=== PATIENT | female | born 1960 | race Caucasian/White ===

== ENCOUNTER → 2019-10-11 | Outpatient (CLI) | payer OTHER ==
[~2019-10-11] MED LIST: DICL1GEL3 TOP; TRET0.0212 TOP; VALA500T5 PO; hormone cream
[2019-11-11 12:03] LABS: BASO # 0.1 10^3/uL (0.0-0.2); BASO % 0.6 % (0.0-1.0); EOS # 0.1 10^3/uL (0.0-0.5); HEMATOCRIT 43.3 % (36.0-47.0); HEMOGLOBIN 13.7 g/dl (12.0-15.5); LYMPH # 1.8 10^3/uL (1.5-5.0); LYMPH % 17.2 % (24.0-44.0); MEAN CORPUSCULAR HEMOGLOBIN 30.4 pg (27.0-33.0); MEAN CORPUSCULAR HGB CONC 31.6 g/dl (32.0-36.5); MONO # 0.7 10^3/uL (0.0-0.8); MONO % 6.7 % (0.0-5.0); NEUTROPHILS # 7.6 10^3/uL (1.5-8.5); NEUTROPHILS % 74.2 % (36.0-66.0); PLATELET COUNT, AUTOMATED 211 10^3/uL (150-450); RED BLOOD COUNT 4.51 10^6/uL (4.00-5.40); WHITE BLOOD COUNT 10.2 10^3/uL (4.0-10.0)
--- NOTE | 2019-11-17 13:22 | ECGEPIP ---
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
[2019-11-25 11:19] LABS: CALCIUM LEVEL 8.5 MG/DL (8.8-10.2); CREATININE FOR GFR 1.02 MG/DL (0.55-1.30); GLOMERULAR FILTRATION RATE 58.7 (>45)
== END ==
LOC: M LAB 17:05
PROVIDERS: ATTEND Podiatrist
DX: M20.32 Hallux varus (acquired), left foot (principal); M79.672 Pain in left foot; M20.42 Other hammer toe(s) (acquired), left foot

== ENCOUNTER 2019-10-20 06:55 | Day surgery (SDC) | payer OTHER ==
[~2019-10-20] VITALS: Ht 165.1 cm; Wt 94.8 kg
[2019-10-20] MEDS ORDERED: dexameTHASONE 4 MG/ML 1ML VIAL (J1100 PER 1MG) As Ordered ONE ×2 (08:12→08:28)
[2019-10-20] MEDS ORDERED: LIDOCAINE 2% 100MG/5ML SDV (FOR ANES.) As Ordered ONE (08:12)
[2019-10-20] MEDS ORDERED: ONDANSETRON 4MG/2ML VIAL As Ordered ONE (08:12)
[2019-10-20] MEDS ORDERED: fentaNYL 100 MCG/2 ML INJECTION (J3010) As Ordered ONE (08:13)
[2019-10-20] MEDS ORDERED: propofoL 500 MG/50 ML VIAL As Ordered ONE (08:13)
[2019-10-20] MEDS ORDERED: MIDAZOLAM INJ 2MG/2ML VIAL (J2250 PER 1MG) As Ordered ONE (08:13)
[2019-10-20] MEDS ORDERED: BUPIVACAINE HCL 0.5% 30 ML VIAL As Ordered ONE (08:26)
[2019-10-20] MEDS ORDERED: LIDOCAINE 2% MDV 20ML VIAL As Ordered ONE (08:26)
[2019-10-20] MEDS ORDERED: BACITRACIN PWD 50,000 UNITS VIAL As Ordered ONE (08:27)
[2019-10-20] MEDS ORDERED: NEOSPORIN GU IRRIG 20 ML VIAL As Ordered ONE (08:27)
[2019-10-20] MEDS ORDERED: ceFAZolin 2 GM/D5W 50 ML IV BAG (J0690 PER 500MG) As Ordered ONE (08:45)
[2019-10-20] MEDS ORDERED: ceFAZolin SOD 2 GM in IV 1 EA IV ONE (09:00)
[2019-10-20] MEDS ORDERED: LR 1,000 ML IV SCH (11:00)
[2019-10-20] MEDS ORDERED: fentaNYL 100 MCG/2 ML INJECTION (J3010) IV PRN (11:00)
[2019-10-20] MEDS ORDERED: METOCLOPRAMIDE INJ 10MG/2ML VIAL (J2765 PER 1) IV PRN (11:00)
[2019-10-20] MEDS ORDERED: ONDANSETRON 4MG/2ML VIAL IV PRN (11:00)
[2019-10-20] MEDS ORDERED: PERCOCET 5MG/325MG TAB PO PRN (11:00)
[2019-10-20 11:10] VITALS: BP 119/57
--- NOTE | 2019-11-10 14:07 | RO ---
DATE OF OPERATION: 10/20/2019 PREOPERATIVE DIAGNOSES: 1. Hallux valgus metatarsus primus varus deformity, left foot. 2. Long 2nd metatarsal, left foot. 3. Hammertoe deformity, 2nd toe, left foot. POSTOPERATIVE DIAGNOSES: 1. Hallux valgus metatarsus primus varus deformity, left foot. 2. Long 2nd metatarsal, left foot. 3. Hammertoe deformity, 2nd toe, left foot. SURGEON: David Epperson DPM FIELD PLACEMENT DIRECTOR: None. HARDWARE UTILIZED: An Arthrex 3.0 x 18 mm headless compression screw, an Arthrex headed 2.4 x 12 mm compression screw, and a 0.045 external wire PROCEDURES: 1. Westley bunionectomy and internal screw fixation, left foot. 2. Shortening 2nd metatarsal osteotomy, internal screw fixation, left foot. 3. Proximal to phalangeal joint fusion with external wire fixation, 0.045 times one, left foot. HEMOSTASIS: Ankle pneumatic tourniquet at 200 mm of mercury of 64 minutes. IRRIGATION: Dilute bacitracin, neomycin, and polymyxin B solution. DESCRIPTION OF OPERATION: On 10/20/2019, this 59-year-old white female was taken from her hospital room to the operating room and placed on the operating table in supine position. Following the induction of intravenous (IV) sedation and local and regional anesthesia, left lower extremity was prepped and draped in the usual aseptic manner. The following procedure was then performed. WESTLEY BUNIONECTOMY, INTERNAL SCREW FIXATION, 3.0 MM X 18 MM TIMES ONE, LEFT FOOT: Attention was directed to the patient's left foot, where a 5 cm incision was placed over the 1st metatarsophalangeal joint. The incision was deepened through subcutaneous tissues, and all coursing venous tributaries were identified, underscored, clamped, cut, ligated, and electrocoagulated as necessary. Incision was deepened in the same plane, and a linear capsulotomy was performed in the same plane as the original skin incision. The capsule and periosteal structures were then dissected free in one continuos layer, dorsally, medially, and laterally, thus creating a capsular periosteal-type envelope. This then brought into the view the hypertrophied medial eminence of the 1st metatarsal, which was osteotomized from distal to proximal through and through, exiting medial to the sesamoidal groove. Attention was then directed into the 1st metatarsal space, where dissection was carried down to the level of the fibular sesamoid, where the conjoined tendon was released. Attention was directed to the medial surface of the 1st metatarsal, where a V-shaped osteotomy was performed of the long plantar and short dorsal wing. Upon creation of this osteotomy, the capital fragment was transposed approximately 40% of the width of the shaft of the 1st me tarsal and fixated with a 3.0 x 18 mm headless compression screw. The osteotomy was noted to be stable in all three cardinal planes. The redundant cortical spike was then osteotomized from dorsal to plantar through and through. Medial surface was rasped to a smooth contour. The wound was flushed with copious amounts of dilute bacitracin, neomycin, and polymyxin B solution. Capsular structures were coapted and maintained utilizing 2-0 Monocryl in a simple interrupted-type fashion. Subcutaneous tissues were coapted and maintained utilizing 4-0 Monocryl in simple interrupted-type fashion. The skin incisions were coapted and maintained utilizing 6-0 Monocryl in continuous subcuticular-type fashion. This was additionally reinforced with Steri-Strips. Attention was then directed to the patient's 2nd toe, where the following procedure was performed. PROXIMAL INTERPHALANGEAL JOINT ARTHROPLASTY WITH EXTERNAL WIRE FIXATION, 0.045 TIMES ONE, 2ND TOE, LEFT FOOT: Attention was directed to the patient's 2nd toe, where a 2 cm incision was placed over the proximal interphalangeal joint. The incision was deepened through subcutaneous tissue, and all coursing venous tributaries were identified, underscored, clamped, cut, ligated, and electrocoagulated as necessary. Linear tenotomy and capsulotomy were performed at the proximal interphalangeal joint. Medial and lateral collateral ligaments were sharply dissected free from the head of the proximal phalanx. Utilizing a power saw, an osteotomy was performed at the level of the anatomic neck of the proximal phalanx from dorsal to plantar through and through. This was extirpated from the wound. Utilizing a power saw, the cartilage was then removed from the base of the middle phalanx. The following procedure was then performed. SHORTENING 2ND METATARSAL OSTEOTOMY WITH INTERNAL SCREW FIXATION: Attention was directed to the patient's 2nd metatarsal area, where a 3 cm incision was placed over the neck of the 2nd metatarsal. The incision was deepened through subcutaneous tissues, and all coursing venous tributaries were identified, underscored, clamped, cut, ligated, and electrocoagulated as necessary. Dissection was then carried down to the combined extensor tendons. They were freed from the surgical site where the 2nd toe arthroplasty was performed. It was then taken and fed through the more proximal incision, and they were released from the extensor expansion an mattson. A transverse tenotomy and capsulotomy was performed at the level of the 2nd metatarsophalangeal joint, and the plantar plate was released. Capsular incision was placed over the neck of the shaft of the 2nd metatarsal, and a Lana osteotomy was performed paralleling the plantar surface of the foot, starting at the articular cartilage of the 2nd metatarsal head. The toe was then placed in its corrected position, and the bone was pushed approximately 5-6 mm proximal, ensuring that the 2nd toe was longer than the 3rd. When a suitable reduction was seen, the osteotomy was fixated with a 2.4 x 12 mm screw. The osteotomy was noted to be stable in all three cardinal planes, and utilizing a rongeur the dorsal shelf of bone was removed and filed with a hand-held rasp. The wound was flushed with copious amounts of dilute bacitracin, neomycin, and polymyxin B solution. Utilizing a C- arm a wire was driven through the middle and distal phalanx and retrograded into the proximal phalanx, fixing the 2nd toe. The extensor tendons were then delivered back into the more distal wound and repaired with 4-0 Supramid in a 4- stranded Bright repair. The capsular structures of the 2nd metatarsophalangeal joint were repaired with 2-0 Monocryl in a simple interrupted-type fashion. Subcutaneous tissues were coapted and maintained utilizing 4-0 Monocryl in a simple interrupted-type fashion. Skin incision was coapted and maintained utilizing 5-0 Monocryl in continuous subcuticular-type fashion. The wound over the 2nd toe was coapted and maintained with 4-0 Monocryl in a simple and horizontal mattress type fashion. Following the completion of the surgical procedure, 4 mg of dexamethasone with sodium phosphate was instilled proximal to the surgical site. Attention was directed toward bandaging, where a sterile compressive bandage was applied, consisting of Adaptic, 4 x 4's, 4 x 4 splintChristina Kerlix and Ananya. The ankle pneumatic tourniquet was rapidly deflated, and instantaneous capillary filling time was noted to digits 1-5 of the patient's left foot. Patient having apparently tolerated the procedure well was taken from the OR to the recovery room for further monitoring by the anesthesia department. JESU
--- NOTE | 2019-11-21 10:49 | REP ---
Delay in reporting results from hospital computer system malfunction from malwre / ransomware. FINDINGS: There has been resection of the second digit proximal phalange head with K-wire fixation. There are osteotomies at the great toe and second digit metatarsal necks with single screw fixations. Skeletal structures, soft tissues and hardware are in satisfactory positions and alignment. There is a calcaneal plantar spur. MTDD
== END 2019-10-20 12:30 | disposition home or self-care (01) ==
LOC: M SDC 06:55
PROVIDERS: ATTEND Podiatrist
DX: M20.12 Hallux valgus (acquired), left foot (principal); M20.5X2 Other deformities of toe(s) (acquired), left foot; M20.42 Other hammer toe(s) (acquired), left foot; D64.9 Anemia, unspecified; F41.9 Anxiety disorder, unspecified; Z87.891 Personal history of nicotine dependence; Z79.899 Other long term (current) drug therapy; Z91.040 Latex allergy status; Z91.048 Other nonmedicinal substance allergy status
CPT/HCPCS: 28285; 28296; 28308; 73630; 76000; 88304; 97116; 97161; 97530; C1713; J0690; J1100; J2250; J2405; J3010

== ENCOUNTER → 2020-12-02 | Outpatient (REF) | payer OTHER ==
[2020-12-02 13:39] LABS: BASO # 0.1 10^3/uL (0.0-0.2); EOS # 0.3 10^3/uL (0.0-0.5); EOS % 4.2 % (0.0-3.0); HEMATOCRIT 42.8 % (36.0-47.0); HEMOGLOBIN 13.7 g/dl (12.0-15.5); LYMPH # 1.9 10^3/uL (1.5-5.0); LYMPH % 32.3 % (24.0-44.0); MEAN CORPUSCULAR VOLUME 93.9 fl (80.0-96.0); MONO # 0.5 10^3/uL (0.0-0.8); NEUTROPHILS # 3.2 10^3/uL (1.5-8.5); NEUTROPHILS % 53.3 % (36.0-66.0); PLATELET COUNT, AUTOMATED 204 10^3/uL (150-450); RED BLOOD COUNT 4.56 10^6/uL (4.00-5.40)
[2020-12-02 14:21] LABS: ALBUMIN 3.4 GM/DL (3.2-5.2); ALT/SGPT 22 U/L (12-78); BILIRUBIN,TOTAL 0.5 MG/DL (0.2-1.0); BLOOD UREA NITROGEN 17 MG/DL (7-18); CALCIUM LEVEL 8.8 MG/DL (8.8-10.2); CARBON DIOXIDE LEVEL 32 MEQ/L (21-32); CHLORIDE LEVEL 109 MEQ/L (98-107); CHOLESTEROL LEVEL 205 MG/DL (<200); CHOLESTEROL RISK RATIO 3.867 (<5); CREATININE FOR GFR 0.91 MG/DL (0.55-1.30); GLOMERULAR FILTRATION RATE > 60.0 (>45); GLUCOSE, FASTING 92 MG/DL (70-100); HDL CHOLESTEROL 53 MG/DL (>40); LDL CHOLESTEROL 131 MG/DL (<100); NON-HDL-C 152 MG/DL; POTASSIUM SERUM 4.5 MEQ/L (3.5-5.1); SODIUM LEVEL 143 MEQ/L (136-145); TOTAL 25(OH) VITAMIN D 33.7 NG/ML (30.0-100.0); TOTAL PROTEIN 6.6 GM/DL (6.4-8.2); TRIGLYCERIDES LEVEL 105 MG/DL (<150); VITAMIN B12 LEVEL 1385 PG/ML (247-911)
[2020-12-02 15:54] LABS: HEMOGLOBIN A1c 5.3 %
== END ==
LOC: M SFHCADAM 07:58
PROVIDERS: ATTEND Family Medicine
DX: E66.9 Obesity, unspecified (principal); E53.8 Deficiency of other specified B group vitamins; E55.9 Vitamin D deficiency, unspecified

== ENCOUNTER → 2021-07-21 | Outpatient (CLI) | payer OTHER | LOC: M WHC 10:30 | PROVIDERS: ATTEND Family Medicine | DX: Z12.31 Encounter for screening mammogram for malignant neoplasm of breast (principal); R92.8 Other abnormal and inconclusive findings on diagnostic imaging of breast ==

== ENCOUNTER → 2021-07-24 | Outpatient (CLI) | payer OTHER | LOC: M WHC 09:01 | PROVIDERS: ATTEND Family Medicine | DX: R92.8 Other abnormal and inconclusive findings on diagnostic imaging of breast (principal); N60.02 Solitary cyst of left breast | CPT/HCPCS: 76642; 77065; G0279 ==

== ENCOUNTER → 2021-12-03 | Outpatient (REF) | payer OTHER ==
[2021-12-03 13:23] LABS: BASO # 0.1 10^3/uL (0.0-0.2); BASO % 0.8 % (0.0-1.0); EOS # 0.2 10^3/uL (0.0-0.5); EOS % 2.7 % (0.0-3.0); HEMATOCRIT 43.5 % (36.0-47.0); HEMOGLOBIN 13.6 g/dl (12.0-15.5); LYMPH # 2.2 10^3/uL (1.5-5.0); LYMPH % 33.6 % (24.0-44.0); MEAN CORPUSCULAR HEMOGLOBIN 29.5 pg (27.0-33.0); MEAN CORPUSCULAR HGB CONC 31.3 g/dl (32.0-36.5); MEAN CORPUSCULAR VOLUME 94.4 fl (80.0-96.0); MONO # 0.5 10^3/uL (0.0-0.8); MONO % 8.1 % (2.0-8.0); NEUTROPHILS # 3.6 10^3/uL (1.5-8.5); NEUTROPHILS % 54.6 % (36.0-66.0); PLATELET COUNT, AUTOMATED 191 10^3/uL (150-450); RED BLOOD COUNT 4.61 10^6/uL (4.00-5.40); WHITE BLOOD COUNT 6.6 10^3/uL (4.0-10.0)
[2021-12-03 15:17] LABS: ALBUMIN 3.6 GM/DL (3.2-5.2); ALT/SGPT 22 U/L (12-78); BILIRUBIN,TOTAL 0.5 MG/DL (0.2-1.0); BLOOD UREA NITROGEN 22 MG/DL (7-18); CALCIUM LEVEL 9.1 MG/DL (8.8-10.2); CARBON DIOXIDE LEVEL 28 MEQ/L (21-32); CHLORIDE LEVEL 109 MEQ/L (98-107); CHOLESTEROL LEVEL 205 MG/DL (<200); CREATININE FOR GFR 0.98 MG/DL (0.55-1.30); GLOMERULAR FILTRATION RATE > 60.0 (>45); GLUCOSE, FASTING 105 MG/DL (70-100); HDL CHOLESTEROL 61 MG/DL (>40); LDL CHOLESTEROL 128 MG/DL (<100); NON-HDL-C 144 MG/DL; POTASSIUM SERUM 4.7 MEQ/L (3.5-5.1); SODIUM LEVEL 141 MEQ/L (136-145); TOTAL PROTEIN 6.7 GM/DL (6.4-8.2); TRIGLYCERIDES LEVEL 80 MG/DL (<150)
[2021-12-03 17:00] LABS: TOTAL 25(OH) VITAMIN D 32.7 NG/ML (30.0-100.0)
[2021-12-05 14:58] LABS: VITAMIN B12 LEVEL 725 PG/ML (247-911)
== END ==
LOC: M SFHCADAM 08:52
PROVIDERS: ATTEND Family Medicine
DX: E53.8 Deficiency of other specified B group vitamins (principal)

== ENCOUNTER → 2021-12-10 | Outpatient (CLI) | payer OTHER | LOC: M WHC 07:18 | PROVIDERS: ATTEND Family Medicine | DX: R92.8 Other abnormal and inconclusive findings on diagnostic imaging of breast (principal) ==

== ENCOUNTER → 2022-12-02 | Outpatient (REF) | payer OTHER ==
[~2022-12-02] MED LIST changes: +DICL100G10 TOP; -DICL1GEL3 TOP
[2022-12-02 13:28] LABS: BASO # 0.1 10^3/uL (0.0-0.2); BASO % 0.9 % (0.0-1.0); EOS # 0.1 10^3/uL (0.0-0.5); HEMATOCRIT 45.3 % (36.0-47.0); HEMOGLOBIN 14.3 g/dl (12.0-15.5); LYMPH % 30.5 % (24.0-44.0); MEAN CORPUSCULAR HEMOGLOBIN 29.4 pg (27.0-33.0); MEAN CORPUSCULAR HGB CONC 31.6 g/dl (32.0-36.5); MEAN CORPUSCULAR VOLUME 93.2 fl (80.0-96.0); MONO # 0.4 10^3/uL (0.0-0.8); MONO % 6.1 % (2.0-8.0); NEUTROPHILS # 3.9 10^3/uL (1.5-8.5); NEUTROPHILS % 60.3 % (36.0-66.0); PLATELET COUNT, AUTOMATED 215 10^3/uL (150-450); RED BLOOD COUNT 4.86 10^6/uL (4.00-5.40); WHITE BLOOD COUNT 6.5 10^3/uL (4.0-10.0)
[2022-12-02 13:46] LABS: HEMOGLOBIN A1c 4.9 % (4.0-6.0)
[2022-12-02 13:48] LABS: ALBUMIN 3.8 G/DL (3.2-5.2); ALKALINE PHOSPHATASE 58 U/L (46-116); ALT/SGPT 24 U/L (7.0-40); AST/SGOT 15 U/L (<34); BILIRUBIN,TOTAL 0.7 MG/DL (0.3-1.2); BLOOD UREA NITROGEN 17 MG/DL (9-23); CARBON DIOXIDE LEVEL 29 MMOL/L (20-31); CHLORIDE LEVEL 106 MMOL/L (98-107); CHOLESTEROL LEVEL 220 MG/DL (<200); CHOLESTEROL RISK RATIO 4.39 (<5); CREATININE FOR GFR 0.94 MG/DL (0.55-1.30); FREE T4 1.13 NG/DL (0.89-1.76); GLOMERULAR FILTRATION RATE > 60.0 (>45); GLUCOSE, FASTING 94 MG/DL (74-106); HDL CHOLESTEROL 50.1 MG/DL (>40); LDL CHOLESTEROL 144.1 MG/DL (<100); NON-HDL-C 169.9 MG/DL; POTASSIUM SERUM 4.7 MMOL/L (3.5-5.1); SODIUM LEVEL 141 MMOL/L (136-145); THYROID STIMULATING HORMONE 2.036 uIU/ML (0.55-4.78); TOTAL 25(OH) VITAMIN D 38.2 NG/ML (20.0-100.0); TOTAL PROTEIN 6.9 G/DL (5.7-8.2); TRIGLYCERIDES LEVEL 129 MG/DL (<150)
== END ==
LOC: M SFHCADAM 10:30
PROVIDERS: ATTEND Physician Assistant
DX: R73.01 Impaired fasting glucose (principal); E55.9 Vitamin D deficiency, unspecified; E78.00 Pure hypercholesterolemia, unspecified

== ENCOUNTER → 2023-06-30 | Outpatient (REF) | payer MEDICARE, OTHER ==
[2023-06-30 18:13] LABS: BASO # 0.1 10^3/uL (0.0-0.2); EOS # 0.2 10^3/uL (0.0-0.5); EOS % 2.7 % (0.0-3.0); HEMATOCRIT 42.1 % (36.0-47.0); HEMOGLOBIN 13.2 g/dl (12.0-15.5); LYMPH # 1.5 10^3/uL (1.5-5.0); MEAN CORPUSCULAR HEMOGLOBIN 29.3 pg (27.0-33.0); MEAN CORPUSCULAR HGB CONC 31.4 g/dl (32.0-36.5); MEAN CORPUSCULAR VOLUME 93.3 fl (80.0-96.0); MONO # 0.5 10^3/uL (0.0-0.8); MONO % 7.8 % (2.0-8.0); NEUTROPHILS # 3.8 10^3/uL (1.5-8.5); NEUTROPHILS % 63.3 % (36.0-66.0); PLATELET COUNT, AUTOMATED 183 10^3/uL (150-450); RED BLOOD COUNT 4.51 10^6/uL (4.00-5.40)
== END ==
LOC: M SFHCADAM 11:22
PROVIDERS: ATTEND Family Medicine
DX: K62.5 Hemorrhage of anus and rectum (principal)

== ENCOUNTER → 2023-07-12 | Outpatient (CLI) | payer MEDICARE, OTHER | LOC: M WHC 14:08 | PROVIDERS: ATTEND Nurse Practitioner Family | DX: Z12.31 Encounter for screening mammogram for malignant neoplasm of breast (principal) ==

== ENCOUNTER → 2024-07-17 | Outpatient (REF) | payer MEDICARE, MEDICAID ==
[2024-07-17 14:16] LABS: BASO # 0.1 10^3/uL (0.0-0.2); BASO % 0.8 % (0.0-1.0); EOS # 0.1 10^3/uL (0.0-0.5); EOS % 1.7 % (0.0-3.0); HEMATOCRIT 44.5 % (36.0-47.0); HEMOGLOBIN 14.2 g/dl (12.0-15.5); LYMPH # 1.9 10^3/uL (1.5-5.0); LYMPH % 27.3 % (24.0-44.0); MEAN CORPUSCULAR HEMOGLOBIN 29.6 pg (27.0-33.0); MEAN CORPUSCULAR HGB CONC 31.9 g/dl (32.0-36.5); MEAN CORPUSCULAR VOLUME 92.7 fl (80.0-96.0); MONO # 0.5 10^3/uL (0.0-0.8); MONO % 6.8 % (2.0-8.0); NEUTROPHILS # 4.5 10^3/uL (1.5-8.5); NEUTROPHILS % 63.1 % (36.0-66.0); PLATELET COUNT, AUTOMATED 210 10^3/uL (150-450); WHITE BLOOD COUNT 7.1 10^3/uL (4.0-10.0)
[2024-07-17 14:36] LABS: FREE T4 1.22 NG/DL (0.89-1.76)
[2024-07-17 14:37] LABS: THYROID STIMULATING HORMONE 1.331 uIU/ML (0.55-4.78)
[2024-07-17 14:40] LABS: ALBUMIN 3.9 G/DL (3.2-5.2); BILIRUBIN,TOTAL 0.6 MG/DL (0.3-1.2); CALCIUM LEVEL 8.8 MG/DL (8.3-10.6); CHOLESTEROL RISK RATIO 4.22 (<5); CREATININE FOR GFR 0.91 MG/DL (0.55-1.30); GLOMERULAR FILTRATION RATE 69.6 (>45); HDL CHOLESTEROL 40.5 MG/DL (>40); LDL CHOLESTEROL 117.3 MG/DL (<100); NON-HDL-C 130.5 MG/DL; POTASSIUM SERUM 4.7 MMOL/L (3.5-5.1); TOTAL PROTEIN 6.8 G/DL (5.7-8.2)
== END ==
LOC: M SFHCADAM 11:06
PROVIDERS: ATTEND Family Medicine
DX: Z00.00 Encounter for general adult medical examination without abnormal findings (principal); Z79.899 Other long term (current) drug therapy